=== PATIENT | female | born 1945 | race Caucasian/White ===

== ENCOUNTER 2023-02-18 10:05 | Outpatient (CLI) | payer MEDICARE, BC | END 2023-02-18 10:06 | disposition home or self-care (01) | LOC: CSHMAMMO 10:05 | PROVIDERS: ATTEND Internal Medicine | DX: Z12.31 Encounter for screening mammogram for malignant neoplasm of breast (principal); Z13.820 Encounter for screening for osteoporosis; M85.851 Other specified disorders of bone density and structure, right thigh; M85.852 Other specified disorders of bone density and structure, left thigh; Z85.820 Personal history of malignant melanoma of skin; Z78.0 Asymptomatic menopausal state | CPT/HCPCS: 77063; 77067; 77080 ==